=== PATIENT | female | born 1950 | race Caucasian/White ===

== ENCOUNTER → 2018-02-10 | Outpatient (CLI) | payer MEDICARE, OTHER ==
--- NOTE | 2018-02-10 13:13 | Diagnostic Imaging Report ---
INDICATION: Left kidney stone. TIME OF EXAMINATION: 12:53 p.m. FINDINGS: Single view of the abdomen does show a calcific density overlying the mid portion of the left kidney approximately 6 mm in size. Right kidney is obscured by bowel gas. No definite ureteral calculi are detected. Pelvic calcifications likely represent phleboliths. The bowel gas pattern is nonobstructive. Gallbladder is surgically absent. IMPRESSION: Left renal calculus. No other significant abnormality is detected. Dictated by: Dictated on workstation # [id number]
== END ==
LOC: RAD 12:07
PROVIDERS: ATTEND Urology
DX: N20.0 Calculus of kidney (principal)
CPT/HCPCS: 74018

== ENCOUNTER → 2018-02-27 | Outpatient (CLI) | payer MEDICARE, OTHER ==
--- NOTE | 2018-02-27 15:59 | Diagnostic Imaging Report ---
PROCEDURE: CT abdomen and pelvis without contrast. TECHNIQUE: Multiple contiguous axial images were obtained through the abdomen and pelvis without the use of intravenous contrast. INDICATION: Left renal stones with nausea and back pain. COMPARISON: No prior studies are available for comparison. FINDINGS: Lung bases demonstrate scarring or atelectasis in the lingula. No discrete liver mass is identified. The gallbladder is surgically absent. The pancreas and spleen are unremarkable. No adrenal mass is identified. The right kidney is unremarkable. There appears to be a grouping of nonobstructing calculi within the left mid kidney, in aggregate measuring approximately 5 mm. No hydronephrosis is seen. No ureteral calculi are detected. Aorta is calcified but nonaneurysmal. Small and large bowel loops are normal in caliber. There is sigmoid diverticulosis but no evidence of acute diverticulitis. The bladder is decompressed. No free fluid is seen. IMPRESSION: 1. Nonobstructing left renal calculi. 2. Uncomplicated diverticulosis. Dictated by: Dictated on workstation # [id number]
== END ==
LOC: RAD 15:15
PROVIDERS: ATTEND Urology
DX: N20.0 Calculus of kidney (principal); K57.30 Diverticulosis of large intestine without perforation or abscess without bleeding
CPT/HCPCS: 74176

== ENCOUNTER → 2018-09-04 | Outpatient (CLI) | payer MEDICARE, OTHER ==
--- NOTE | 2018-09-04 17:21 | Diagnostic Imaging Report ---
INDICATION: Left-sided renal stone. COMPARISON: 02/10/2018. FINDINGS: Single supine radiographic view of the abdomen was obtained and again demonstrates 6 mm calculus projecting over the left renal shadow consistent with nephrolithiasis when compared to previous CT. Multiple pelvic phleboliths are also noted. No unexpected radiopaque foreign bodies are seen. Small bowel loops are nondistended. Bony structures show mild levoscoliotic deformity of the lumbar spine with multilevel degenerative changes. IMPRESSION: 1. Stable left-sided nephrolithiasis. Dictated by: Dictated on workstation # [id number]
== END ==
LOC: RAD 14:45
PROVIDERS: ATTEND Urology
DX: N20.0 Calculus of kidney (principal)
CPT/HCPCS: 74018

== ENCOUNTER 2018-10-01 14:11 | Outpatient (CLI) | payer MEDICARE, OTHER ==
[~2018-10-01] VITALS: Ht 165.1 cm; Wt 73.0 kg
[2018-10-01] MEDS ORDERED: LEVO112T55 PO (14:23)
== END 2018-10-01 14:29 | disposition home or self-care (01) ==
LOC: PREOP 14:11
PROVIDERS: ATTEND Urology
DX: Z01.818 Encounter for other preprocedural examination (principal)

== ENCOUNTER 2018-10-07 06:33 | Day surgery (SDC) | payer MEDICARE, OTHER ==
[~2018-10-07] VITALS: Ht 165.1 cm; Wt 73.0 kg
[~2018-10-07 06:33] MED LIST: LEVO112T55 PO
[2018-10-07] MEDS ORDERED: LACTATED RINGERS 1,000 ML IV PRN (06:47)
[2018-10-07] MEDS ORDERED: CATHETER FLUSH 10 ML SYR IV PRN (07:00)
[2018-10-07] MEDS ORDERED: cefTRIAXone FOR IV USE 1,000 MG in NS (IVPB) 50 ML IV ONE (07:00)
--- NOTE | 2018-10-07 07:05 | Progress Note-Pre Operative ---
Pre-Operative Progress Note H&P Reviewed The H&P was reviewed, patient examined and no changes noted. Date Seen by Provider: Oct 07, 2018 Time Seen by Provider: 07:05 Date H&P Reviewed: Oct 07, 2018 Time H&P Reviewed: 07:05 Pre-Operative Diagnosis: LT RENAL STONE LENY DE LUNA MD Oct 07, 2018 7:05 am
[2018-10-07 07:15] VITALS: BP 129/84
[2018-10-07] MEDS ORDERED: SCOPOLAMINE 1.5 MG (TRANSDERM-SCOP) PATCH ONE (07:15)
[2018-10-07] MEDS ORDERED: FAMOTIDINE 20MG/2ML IV (PEPCID) ONE (07:15)
[2018-10-07] MEDS ORDERED: MIDAZOLAM 2 MG/2 ML (VERSED) VIAL ONE (07:18)
[2018-10-07] MEDS ORDERED: proPOfol 200 MG/20 ML (DIPRIVAN) VIAL IV ONE (07:18)
[2018-10-07] MEDS ORDERED: DEXAMETHASONE 10 MG/ML (DECADRON) 1 ML VIAL ONE (07:18)
[2018-10-07] MEDS ORDERED: LIDOCAINE PF 2% 5 ML (XYLOCAINE) VIAL ONE (07:18)
[2018-10-07] MEDS ORDERED: SEVOFLURANE (ULTANE) 15 ML INHAL SOLN ONE (07:19)
[2018-10-07] MEDS ORDERED: fentaNYL INJECTION 100 MCG/2 ML AMP ONE (07:19)
--- NOTE | 2018-10-07 07:19 | Diagnostic Imaging Report ---
INDICATION: Preop evaluation for ESWL. COMPARISON: 09/04/2018. FINDINGS: Single supine radiographic view of the abdomen was obtained and demonstrates extraosseous calcifications projecting over the left kidney consistent with nephrolithiasis. No other unexpected extraosseous calcifications or radiopaque foreign bodies are seen. Multiple pelvic phleboliths are noted. Included small bowel loops are nondistended. There is mild levoscoliotic deformity of the lumbar spine. IMPRESSION: 1. Left-sided nephrolithiasis. Dictated by: Dictated on workstation # [id number]
[2018-10-07] MEDS: LACTATED RINGERS 1,000 ML IV PRN ×2 (07:26→09:15)
[2018-10-07] MEDS ORDERED: FAMOTIDINE 20MG/2ML IV (PEPCID) IV ONE (07:30)
[2018-10-07] MEDS ORDERED: SCOPOLAMINE 1.5 MG (TRANSDERM-SCOP) PATCH TOP ONE (07:30)
--- NOTE | 2018-10-07 08:47 | Progress Note-Post Operative ---
Post-Operative Progess Note Surgeon (s)/Psychiatry Adult Physician (s) Surgeon LENY DE LUNA MD Psychiatry Adult Physician: NONE Pre-Operative Diagnosis LT RENAL STONE Post-Operative Diagnosis SAME Procedure & Operative Findings Date of Procedure 10/07/18 Procedure Performed/Findings LT ESWL Anesthesia Type GENERAL Estimated Blood Loss Estimated blood loss (mL): NONE Specimens/Packing Specimens Removed NONE Packing: NONE LENY DE LUNA MD Oct 07, 2018 8:47 am
--- NOTE | 2018-10-07 08:49 | Discharge Inst-Urology ---
Discharge Inst-Urology Patient Instructions/Follow Up Plan Please make appointment to been seen in office in 2 weeks. KUB prior to it KUB on way home Post ESWL instructions Tylenol or IBP PRN Increase oral fluids for 48 hours and then as needed. Diet and Activity as tolerated. If questions or concerns contact your physician Or seek help at emergency department. LENY DE LUNA MD Oct 07, 2018 8:49 am
[2018-10-07] MEDS ORDERED: FUROSEMIDE 40 MG/4 ML INJ (LASIX) ONE (09:03)
[2018-10-07] MEDS ORDERED: KETOROLAC 30 MG/ML VIAL ONE (09:03)
[2018-10-07] MEDS ORDERED: PROPOFOL INJECTION 50 ML IV ONE (09:11)
[2018-10-07] MEDS ORDERED: fentaNYL INJECTION 100 MCG/2 ML AMP IVP ONE (09:30)
[2018-10-07] MEDS ORDERED: PROMETHAZINE INJ 25 MG/ML (PHENERGAN) AMP IVP ONE (09:30)
[2018-10-07 10:15] VITALS: BP 143/85
--- NOTE | 2018-10-07 10:26 | Anesthesia-General Post-Op ---
General Patient Condition Mental Status/LOC: Same as Preop Cardiovascular: Satisfactory Nausea/Vomiting: Absent Respiratory: Satisfactory Pain: Controlled Complications: Absent Post Op Complications Complications None Follow Up Care/Instructions Patient Instructions None needed. Anesthesia/Patient Condition Patient Condition Patient is doing well, no complaints, stable vital signs, no apparent adverse anesthesia problems. No complications reported per nursing. KENDRA MILIAN CRNA Oct 07, 2018 10:26
[2018-10-07 10:45] VITALS: BP 140/83
[2018-10-07 11:15] VITALS: BP 164/92
--- NOTE | 2018-10-07 13:05 | Diagnostic Imaging Report ---
EXAMINATION: Supine abdomen at 11:34 a.m. INDICATION: Post ESWL. FINDINGS: The abdomen exam performed earlier today at 07:29 a.m. noted a few calcific densities overlying the left kidney. Reportedly, in the interval since the prior study, the patient has undergone ESWL. The calcific densities in question are not as well visualized on this study. The left kidney is obscured however by bowel gas and fecal material. There are no other pathological calcifications seen. There are again numerous phleboliths in the pelvis. IMPRESSION: 1. The calcifications overlying the left kidney seen previously are not well visualized on this exam as the left kidney is now obscured by bowel gas and fecal material. 2. If indicated, a follow-up KUB will be recommended. Dictated by: Dictated on workstation # [id number]
--- NOTE | 2018-10-07 14:31 | OPERATIVE REPORT ---
DATE OF SERVICE: 10/07/2018 PREOPERATIVE DIAGNOSIS: Left renal stones. POSTOPERATIVE DIAGNOSIS: Left renal stones. OPERATION PERFORMED: Left ESWL. SURGEON: Edgardo De Luna MD ANESTHESIA: General. COMPLICATIONS: None. DESCRIPTION OF PROCEDURE: Under satisfactory general anesthesia, the patient in supine position on the ESWL table, the left renal stones were localized. Shocks were delivered at kV of 4. A total of 2500 shocks completely fragmented the stones that were not visualized. I did not give the patient any Lasix or Toradol because she is very sensitive to medications. She tolerated the procedure and anesthesia well and was sent to recovery room in stable condition. Job ID: [id number] DocumentID: [id number] Dictated Date: 10/07/2018 09:11:19 [employer]on Tester Date: 10/07/2018 14:30:20 Dictated By: EDGARDO DE LUNA MD
== END 2018-10-07 11:30 | disposition home or self-care (01) ==
LOC: SDC 06:33
PROVIDERS: ATTEND Urology
DX: N20.0 Calculus of kidney (principal); Z87.891 Personal history of nicotine dependence
CPT/HCPCS: 74018; 87081

== ENCOUNTER → 2018-10-21 | Outpatient (CLI) | payer MEDICARE, OTHER ==
--- NOTE | 2018-10-21 20:10 | Diagnostic Imaging Report ---
EXAMINATION: Abdominal radiographs, single supine view. DATE: October 21, 2018. CLINICAL INDICATION: 68-year-old female, followup renal stone. History of shock wave lithotripsy. COMPARISON: October 07, 2018. COMMENTS: There are multiple pelvic calcifications likely relating to phleboliths. There is a subtle radiodensity projecting over the left renal shadow which potentially could relate to a small nonobstructing renal stone versus fecal material. This measures roughly 2 mm in size. There is no otherwise identified radiographically apparent potential renal stone or stone at the level of the ureters. There are right upper quadrant surgical clips. There are no abnormally distended gas-filled segments of bowel. IMPRESSION: 1. A 2 mm punctate area of high attenuation projecting over the left renal shadow which potentially could relate to a nonobstructing left renal stone versus fecal material. 2. No otherwise radiographically visible potential renal or ureteral stone. 3. Pelvic calcifications likely relate to phleboliths. Dictated on workstation # [id number]
== END ==
LOC: RAD 14:25
PROVIDERS: ATTEND Urology
DX: N20.0 Calculus of kidney (principal)
CPT/HCPCS: 74018